=== PATIENT | female | born 1940 | race Two or more races ===

== ENCOUNTER 2017-11-15 08:24 | Emergency (ER) | payer OTHER ==
[~2017-11-15] VITALS: Ht 157.5 cm; Wt 59.0 kg
[~2017-11-15 08:24] MED LIST: IMODIUM A-D2 MG PO; INTESTINEX680 MG PO; LAXATIVE5 M1; LEVAQUIN500 MG PO; LOSARTAN-HCTZ1 EACH; MIRALAX12 EA; PERCOCET 5/3251 TAB PO; VITAMINA B12
[2017-11-15] MEDS ORDERED: PREDNISONE5 M1 (08:48)
[2017-11-15] MEDS ORDERED: CLEOCIN HCL300 MG (08:50)
[2017-11-15] MEDS ORDERED: DELTASONE20 MG (08:51)
== END 2017-11-15 12:35 | disposition home or self-care (01) ==
LOC: ER 08:24
DX: M25.511 Pain in right shoulder (principal); M19.011 Primary osteoarthritis, right shoulder; M75.91 Shoulder lesion, unspecified, right shoulder

== ENCOUNTER 2018-03-23 04:54 | Emergency (ER) | payer OTHER ==
[~2018-03-23] VITALS: Ht 157.5 cm; Wt 59.9 kg
[~2018-03-23 04:54] MED LIST changes: +CLEOCIN HCL300 MG; +DELTASONE20 MG; +PREDNISONE5 M1
[2018-03-23] MEDS ORDERED: PERCOCET 5-3251 EACH PO (14:28)
[2018-03-23] MEDS ORDERED: CEPHALEXIN500 MG PO (14:28)
[2018-03-23] MEDS ORDERED: BELSOMRA10 MG PO (14:28)
== END 2018-03-23 15:56 | disposition home or self-care (01) ==
LOC: ER 04:54
DX: R33.8 Other retention of urine (principal); R19.09 Other intra-abdominal and pelvic swelling, mass and lump; C19 Malignant neoplasm of rectosigmoid junction

== ENCOUNTER 2018-07-02 23:13 | Inpatient (IN) | payer OTHER ==
[~2018-07-02] VITALS: Ht 157.5 cm; Wt 59.0 kg
[~2018-07-02 23:13] MED LIST changes: +BELSOMRA10 MG PO; +CEPHALEXIN500 MG PO; +PERCOCET 5-3251 EACH PO
--- NOTE | 2018-07-02 23:29 | NUR ---
SE RECIBE PTE FEMINA EN AMBULANCIA QUIEN REFIERE DOLOR ABDOMINAL DESDE EL SABADO. TE REFIERE CA COLON, PTE ES UN TRANSFER DE HOSP [facility]. SE UBICA PTE EN MARCELINO CON BARANDAS ELEVADAS Y EN COMPANIA DE FAMILIAR.
--- NOTE | 2018-07-03 01:09 | NUR ---
PACIENTE ALERTA Y ORIENTADA EVALUADA POR EL DR. ONEIL SE ORIENTA A PACIENTE SOBRE TRATAMIENTO MEDICO, SE EXTRAN MUESTRAS DE JANN Y SE ADMISNITRAN MEDICAMENTOS ORALIA ORDEN MEDICA BAJO MEDIDAS ASEPTICAS. PACIENTE CON SONADA URINARIA, SE OBSERVA ORINA CON SEDIMENTACION Y FETIDA, SE TAYLER A PACIENTE EN CAMA BAJO OBSERVACION POR CAMBIOS EN MORROW CONDICION.
--- NOTE | 2018-07-03 06:24 | NUR ---
SE JOE FENG.
--- NOTE | 2018-07-03 07:29 | NUR ---
SE RECIBE PTE ALERTA Y ORIENTADA EN LAS 3 ESFERAS EN CAMA CON BARANDAS ELEVADAS POR SEGURIDAD. PTE RESPIRA SIN DIFICULTAD Y NO REFIERE SENTIR DOLOR. IV'S PATENTE, 0.9NSS BAJANDO A 100ML/HR, AREA DE VENOPUNCION EN BRAZO JOELLE, AREA FARHANA DE EDEMA Y ERITEMA. PENDIENTE CONSULTA CON . SE MANTIENE EN OBSERVACION POR CAMBIOS EN MORROW CONDICIO MEDICA.
== END 2018-07-06 14:08 | disposition home or self-care (01) | DRG 389 ==
LOC: ER 23:13 → SURG 07-03 13:55 → SEC-K 07-03 13:55 → SURG 07-03 14:23
PROVIDERS: ADMIT Colon & Rectal Surgery
DX: K56.690 Other partial intestinal obstruction (principal); C19 Malignant neoplasm of rectosigmoid junction

== ENCOUNTER → 2018-09-11 | Day surgery (SDC) | payer OTHER | END | disposition home or self-care (01) | LOC: ADM 09-09 08:00 → AMB-ENDOS 07:28 | DX: C20 Malignant neoplasm of rectum (principal); K64.1 Second degree hemorrhoids ==

== ENCOUNTER 2019-03-21 11:23 | Emergency (ER) | payer OTHER ==
[~2019-03-21] VITALS: Ht 157.5 cm; Wt 59.9 kg
== END 2019-03-21 14:38 | disposition home or self-care (01) ==
LOC: ER 11:23
DX: G89.3 Neoplasm related pain (acute) (chronic) (principal); C78.5 Secondary malignant neoplasm of large intestine and rectum; C79.51 Secondary malignant neoplasm of bone; C78.7 Secondary malignant neoplasm of liver and intrahepatic bile duct; C78.89 Secondary malignant neoplasm of other digestive organs; R10.32 Left lower quadrant pain

== ENCOUNTER 2019-05-15 04:44 | Emergency (ER) | payer OTHER ==
[~2019-05-15] VITALS: Ht 157.5 cm; Wt 58.5 kg
[2019-05-15] MEDS ORDERED: CAMPTOSAR40 MG/2 ML (04:58)
== END 2019-05-15 11:03 | disposition home or self-care (01) ==
LOC: ER 04:44
DX: S00.83XA Contusion of other part of head, initial encounter (principal); S30.0XXA Contusion of lower back and pelvis, initial encounter; N39.0 Urinary tract infection, site not specified; B96.1 Klebsiella pneumoniae [K. pneumoniae] as the cause of diseases classified elsewhere; B96.4 Proteus (mirabilis) (morganii) as the cause of diseases classified elsewhere; B96.89 Other specified bacterial agents as the cause of diseases classified elsewhere; R31.29 Other microscopic hematuria; W01.198A Fall on same level from slipping, tripping and stumbling with subsequent striking against other object, initial encounter; Y93.E8 Activity, other personal hygiene; Y92.012 Bathroom of single-family (private) house as the place of occurrence of the external cause; Y99.8 Other external cause status

== ENCOUNTER 2019-06-03 12:41 | Emergency (ER) | payer OTHER ==
[~2019-06-03] VITALS: Ht 157.5 cm; Wt 55.3 kg
[~2019-06-03 12:41] MED LIST changes: +CAMPTOSAR40 MG/2 ML
[2019-06-03] MEDS ORDERED: ATACAND4 MG PO (13:04)
== END 2019-06-04 19:28 | disposition home or self-care (01) ==
LOC: ER 12:41
DX: C19 Malignant neoplasm of rectosigmoid junction (principal); R19.09 Other intra-abdominal and pelvic swelling, mass and lump; K80.51 Calculus of bile duct without cholangitis or cholecystitis with obstruction; N13.39 Other hydronephrosis; R10.32 Left lower quadrant pain